=== PATIENT | male | born 1980 | race Two or more races ===

== ENCOUNTER → 2016-06-09 | Outpatient (REF) | payer BC | LOC: M SMT 11:52 | PROVIDERS: ATTEND Urology | DX: Z30.2 Encounter for sterilization (principal) ==

== ENCOUNTER → 2020-03-19 | Outpatient (REF) | payer BC ==
[2020-03-19 14:10] LABS: CRYSTALS, BODY FLUID NONE SEEN (NONE SEEN); SOURCE, BODY FLUID CRYSTALS RT KNEE
[2020-03-19 14:18] LABS: SOURCE, BODY FLUID RT KNEE; SYNOVIAL FLUID COLOR YELLOW (YELLOW)
[2020-03-19 15:16] LABS: SOURCE, BODY FLUID GLUCOSE RT KNEE
[2020-03-20 10:29] LABS: BODY FLUID RHEUMATOID SCREEN NEGATIVE (NEGATIVE)
[2020-03-20 10:33] LABS: MUCIN CLOT TEST 4+ (4+)
== END ==
LOC: M LAB REF 13:19
PROVIDERS: ATTEND Orthopaedic Surgery
DX: M25.561 Pain in right knee (principal)

== ENCOUNTER 2022-05-10 06:35 | Day surgery (SDC) | payer OTHER ==
[~2022-05-10] VITALS: Ht 188 cm; Wt 137.8 kg
[~2022-05-10 06:35] MED LIST: NS 1,000 ML IV ONE
[2022-05-10] MEDS ORDERED: HYDR-3910 PO (06:41)
[2022-05-10] MEDS ORDERED: NITROGLYCERIN 0.4MG SUBL TABLET SL STA (07:07)
[2022-05-10 07:16] VITALS: BP 151/84
[2022-05-10] MEDS ORDERED: GLUCAGON INJ 1MG VIAL IV STA (08:55)
[2022-05-10 10:49] LABS: BASO % 0.3 % (0.0-1.0); EOS % 0.3 % (0.0-3.0); HEMATOCRIT 44.1 % (42.0-52.0); HEMOGLOBIN 14.5 g/dl (13.5-17.5); LYMPH % 11.7 % (24.0-44.0); MEAN CORPUSCULAR HEMOGLOBIN 30.1 pg (27.0-33.0); MEAN CORPUSCULAR HGB CONC 32.9 g/dl (32.0-36.5); MEAN CORPUSCULAR VOLUME 91.7 fl (80.0-96.0); MONO # 0.5 10^3/uL (0.0-0.8); NEUTROPHILS % 81.4 % (36.0-66.0); PLATELET COUNT, AUTOMATED 229 10^3/uL (150-450); RED BLOOD COUNT 4.81 10^6/uL (4.30-6.10); WHITE BLOOD COUNT 8.6 10^3/uL (4.0-10.0)
[2022-05-10] MEDS ORDERED: VALS160T2 PO (10:51)
[2022-05-10] MEDS ORDERED: HOME MED LIST COMPLETE! XX SCH (10:55)
[2022-05-10 11:06] LABS: BLOOD UREA NITROGEN 11 MG/DL (9-23); CALCIUM LEVEL 9.2 MG/DL (8.5-10.1); CARBON DIOXIDE LEVEL 28 MMOL/L (20-31); CHLORIDE LEVEL 104 MMOL/L (98-107); CREATININE FOR GFR 0.84 MG/DL (0.70-1.30); GLOMERULAR FILTRATION RATE > 60.0 (>60); GLUCOSE, FASTING 95 MG/DL (60-100); POTASSIUM SERUM 4.2 MMOL/L (3.5-5.1); SODIUM LEVEL 139 MMOL/L (136-145)
[2022-05-10 11:23] LABS: RSV AMPLIFICATION NEGATIVE (NEGATIVE)
[2022-05-10] MEDS ORDERED: NS 1,000 ML IV ONE (13:15)
[2022-05-10 15:00] VITALS: BP 148/80
[2022-05-10] MEDS ORDERED: propofoL 200 MG/20 ML VIAL As Ordered ONE (15:30)
[2022-05-10] MEDS ORDERED: LIDOCAINE 2% 100MG/5ML SDV (FOR ANES.) As Ordered ONE (15:30)
[2022-05-10] MEDS ORDERED: SUCCINYLCHOLINE 100MG/5ML SYRINGE As Ordered ONE (15:58)
[2022-05-10] MEDS ORDERED: MIDAZOLAM INJ 2MG/2ML VIAL As Ordered ONE (15:58)
[2022-05-10] MEDS ORDERED: fentaNYL 100 MCG/2 ML INJECTION As Ordered ONE (15:58)
[2022-05-10] MEDS ORDERED: ONDANSETRON 4MG 2ML VIAL As Ordered ONE (15:59)
[2022-05-10] MEDS ORDERED: oxyCODONE 5MG TAB PO PRN (16:35)
[2022-05-10] MEDS ORDERED: ONDANSETRON 4MG 2ML VIAL IV PRN (16:35)
[2022-05-10] MEDS ORDERED: LR 1,000 ML IV SCH (16:35)
[2022-05-10] MEDS ORDERED: PROT1TAB2 PO (16:36)
[2022-05-10 17:20] VITALS: BP 147/82
== END 2022-05-10 17:47 | disposition home or self-care (01) ==
LOC: M ED 06:35 → M SDC 13:55 → ENRESERV 14:03 → M MSPAV 15:00 → M SDC 17:47
PROVIDERS: ATTEND Surgery
DX: T18.128A Food in esophagus causing other injury, initial encounter (principal); I10 Essential (primary) hypertension; E66.9 Obesity, unspecified
CPT/HCPCS: 43215; 70360; 71046; 80048; 85025; 87631; 93005; 93041; 99285; J0330; J1100; J1610; J2250; J2405; J3010